=== PATIENT | female | born 1980 | race Caucasian/White ===

== ENCOUNTER → 2016-10-07 | Outpatient (CLI) | payer MEDICARE, OTHER ==
[~2016-10-07] MED LIST: ALDACTONE100 MG PO; BUSPIRONE HCL10 MG PO; DULOXETINE HCL60 MG PO; FERROUS GLUCON324 M2 PO; LEVSIN-SL0.125 MG SL; LIALDA1.2 GM PO; LIPITOR PO; OMEPRAZOLE40 M1 PO; PHENERGAN25 MG PO; PROZAC40 M1 PO; UCERIS9 MG PO; XANAX0.5 M1 PO; ZESTORETIC 10-1 EAC1; ZESTORETIC 20-1 EAC1 PO; ZOFRAN ODT4 M1 PO; ZYRTEC10 M1 PO
== END | disposition home or self-care (01) ==
LOC: CSSDAY 10-06 10:00
DX: K51.90 Ulcerative colitis, unspecified, without complications (principal)
CPT/HCPCS: 96365; J3380

== ENCOUNTER → 2016-11-05 | Outpatient (CLI) | payer MEDICARE, OTHER | END | disposition home or self-care (01) | LOC: CSSDAY 11-02 09:00 | DX: K51.90 Ulcerative colitis, unspecified, without complications (principal); Z79.899 Other long term (current) drug therapy | CPT/HCPCS: 96365; J3380 ==

== ENCOUNTER → 2016-12-08 | Outpatient (CLI) | payer MEDICARE, OTHER | END | disposition home or self-care (01) | LOC: CSSDAY 10:55 | DX: K51.90 Ulcerative colitis, unspecified, without complications (principal); Z79.899 Other long term (current) drug therapy | CPT/HCPCS: 96365; J3380 ==